=== PATIENT | male | born 1970 ===

== ENCOUNTER 2022-03-24 18:19 | Inpatient (IN) | payer MEDICARE, MEDICAID ==
[2022-03-24] MEDS ORDERED: MAGNESIUM HYDROXIDE 2,400 MG/10 ML CUP PO PRN (19:21)
[2022-03-24] MEDS ORDERED: HALOPERIDOL LACTATE 5 MG/ML 1 ML VIAL IM PRN (19:21)
[2022-03-24] MEDS ORDERED: MAG HYDROX/AL HYDROX/SIMETH 30 ML CUP PO PRN (19:21)
[2022-03-25] MEDS: NICOTINE 14MG/24HR PATCH TRANSDERM SCH ×2 (09:42→10:48)
[2022-03-25] MEDS ORDERED: NICOTINE GUM (POLACRILEX) 2 MG GUM BUCCAL PRN (11:43)
--- NOTE | 2022-03-25 12:18 | P.MDCNMH ---
History of Present Illness H&P Date: 03/25/22 Chief Complaint: Medical consultation Patient is a 51 years old male with past medical history bipolar disorder, tobacco use disorder and hypertension he was admitted to the hospital for episode of psychosis and paranoid delusions. The patient is a poor historian and he started getting fairly angry when questioned about reason for admission. He states that he's feeling well denies having any chest pain or difficulty breathing. No nausea vomiting diarrhea or constipation. He states he has no medical issues and his only problem is hypertension and he's taking lisinopril at home. Review of Systems A 14 point review systems was assessed patient was only positive for those described in HPI Past Medical History Past Medical History: No Reported History History of Any Multi-Drug Resistant Organisms: None Reported Past Surgical History: No Surgical Hx Reported Past Anesthesia/Blood Transfusion Reactions: No Reported Reaction Past Psychological History: Bipolar Smoking Status: Current every day smoker Past Alcohol Use History: None Reported Past Drug Use History: None Reported - Past Family History Mother Family Medical History: Cancer Medications and Allergies Home Medications Medication Instructions Recorded Confirmed Type Paliperidone IM [Invega Sustenna] 234 mg IM QMONTHLY #1 each 02/10/22 Rx Allergies Allergy/AdvReac Type Severity Reaction Status Date / Time No Known Allergies Allergy Verified 02/07/22 14:46 Physical Exam Vitals: Vital Signs Temp Pulse Resp BP Pulse Ox 03/25/22 07:22 97.4 F L 75 18 147/94 97 Intake and Output 03/24/22 03/25/22 03/25/22 22:59 06:59 14:59 Other: Weight 127.27 kg 127.27 kg General: [non toxic], [no distress], [appears at stated age] Derm: [warm], [dry] Head: [atraumatic], [normocephalic], [symmetric] Eyes: [EOMI], [no lid lag], [anicteric sclera] Mouth: [no lip lesion], [mucus membranes moist] Cardiovascular: [S1S2 reg], [no murmur], [positive posterior tibial pulse bilateral], Lungs: [CTA bilateral], [no rhonchi, no rales] , [no accessory muscle use] Abdominal: [soft], [ nontender to palpation], [no guarding], [no appreciable organomegaly] Ext: [no gross muscle atrophy], [no edema], [no contractures] Neuro: [ CN II-XI grossly intact], [no focal neuro deficits] Psych: [Alert], [oriented Cranial Nerve Examination - Cranial Nerves Cranial Nerve II- Optic: Intact Cranial Nerve III- Oculomotor: Intact Cranial Nerve IV- Trochlear: Intact Cranial Nerve V- Trigeminal: Intact Cranial Nerve - Abducens: Intact Cranial Nerve VII- Facial: Intact Cranial Nerve VIII- Auditory: Intact Cranial Nerve IX- Glossopharyngeal: Intact Cranial Nerve X- Vagus: Intact Cranial Nerve XI- Accessory: Intact Cranial Nerve XII- Hypoglossal: Intact Assessment and Plan Assessment: Assessment: Hypertension -Blood pressure was mildly elevated -Resume home lisinopril -Obtain hemoglobin A1c, lipid profile TSH and CMP Tobacco use disorder -Counselled on cessation Psychosis with bipolar disorder -Management for psychiatry Thank you for allowing us to participate in the care of this patient. We will follow peripherally. Do not hesitate to contact us with questions. Someone can be arranged from [facility] Hospitalist group at all hours of the day at [phone]
[2022-03-25 13:04] VITALS: BMI 39.2
[2022-03-25] MEDS: ACETAMINOPHEN TAB 325 MG TAB PO PRN (14:11)
[2022-03-25] MEDS: NICOTINE GUM (POLACRILEX) 2 MG GUM BUCCAL PRN ×3 (15:56→21:07)
[2022-03-25] MEDS: LORazepam 1 MG TAB PO PRN (17:02)
--- NOTE | 2022-03-25 17:17 | P.HP ---
Psychiatric H&P - . H&P Date: 03/25/22 History & Physical: IDENTIFYING DATA: Patient is a 51 year old male with history of bipolar disorder and psychotic symptoms, as well as history of noncompliance with treatment, who is currently on court order from [facility] since 12/06/21. HPI: Patient presented to the hospital on a court order ([facility]) dated 12/06/2021 due to noncompliance with treatment. Patient was recently hospitalized at [facility] 02/07-02/10/22, after missing his Invega Sustenna injection on 01/31/2022, and so he was given his Invega Sustenna 234 mg IM on 02/08/2022 and discharged with plan to get his next injection on 03/08/2022. He reportedly had been noncompliant with medications and treatment requiring readmission on a court order. Per nursing notes, he stated that the meds are "poison" and he doesn't feel he needs them. He has been angry, irritable, and suspicious, arguing with peers in the rocha, has been complaining that people are conspiring against him to his stuff from him, stated "they" are taking over and hiding secrets. On assessment today, he was found anxiously pacing the hallways and asking to be seen. He tells me that he is not sure why he is here because he did take his injection on March 08 and the next one is not due until mid-March. He does report he missed his last appointment with the psychiatrist. He reports a police captain precinct came to his home woke him up from sleep to take him to the hospital. He states he should not be here. He is irritable, hyperverbal, talks fast but not pressured, grandiose ("I'm pretty bright, people don't get my sense of humor"), argumentative. He makes several provocative statements such as equating the mental health system as "Hitler's kitte cats". He continues to be argumentative and evasive when answering questions. He expresses paranoid ideations that there "are people who play on other's minds". He denies recent drug or alcohol use. He reports he smoked daily but claims he quit 3-4 years ago, reports he chews the nicotine gum. Patient denies any suicidal or homicidal ideations, intent or plan. At this time patient denies any auditory or visual hallucinations. I called the number listed for his guardian twice (Nancy Ga, ) but no answer, did not leave a message since it appeared to be a work number. I contacted our EPS nurse, Sherry, who contact [facility] to verify the date of the last Invega injection. She spoke with Rush GRAHAM at [facility] who confirms patient last received his Invega Sustenna 234 mg IM on 03/08/22 at 11am and the next injection is due on 04/05/2022. PAST PSYCHIATRIC HISTORY: Patient has previous diagnoses of bipolar disorder and schizoaffective disorder. Past psychiatric medications: "You name it I've been on it...I've even had shock treatment." He has been hospitalized "numerous" times, most recently [facility] 02/07-02[facility], was discharged on Invega Sustenna 234 mg IM every four weeks with next injection due 03/08/2022. History of multiple suicide attempts in the past. He is linked with the ACT team in [facility]. PMH: Hypertension, obesity ALLERGIES: as per EMR CHEMICAL DEPENDENCY HISTORY: as per HPI FAMILY PSYCHIATRIC/SUBSTANCE USE HISTORY: "I would imagine a couple people" SOCIAL HISTORY: [place]and I do a good job at it" His sister is his guardian (Nancy Ga) MENTAL STATUS EXAM: General Appearance: Patient appears to be stated age, with average hygiene and grooming. Behavior: Patient is seated without any agitated behavior, however he is argumentative, angry and irritable. Speech: Patient's speech is loud, hyperverbal but not pressured. Mood/Affect: Patient reports his mood is "right now is positive", affect is incongruent and constricted. Suicidality/Homicidality: Patient denies having any homicidal ideation intent or plan. Denies any suicidal ideations intent or plan. Perceptions: Patient denies any visual hallucinations and denies any auditory hallucinations. Thought process: Derails easily, tangential Thought content: Makes many provocative statements. There is evidence of paranoid delusional thought content. Memory and concentration: AOX3, grossly intact for the purposes of this session. Can spell "WORLD" backwards Judgment and insight: Very poor STRENGTHS/WEAKNESSES: Strength is that patient is resilient. Weakness is that patient has poor judgment and is impulsive. INTELLECT: Average IMPRESSIONS: Bipolar 1 disorder, manic Rule out schizoaffective disorder, bipolar type Tobacco use disorder/nicotine dependence PLAN: -Patient is admitted under court under ([facility]) issued on 12/06/2021 to [facility] for stabilization of psychiatric symptoms and safety. -Medications: It has been confirmed with [facility] that his last Invega Sustenna 234 mg IM injection was given on 03/08/22 at 11am. Next injection is due 04/05/2022. He would benefit from a mood stabilizer but is not agreeable to starting one at this time. Will discuss this further with him tomorrow when he is more agreeable. He declines Depakote, claims he is allergic to it. -Ativan and Haldol PRN for agitation/aggression -Patient was informed of the risks, benefits and side effects of the medication and patient verbally consented to taking the medications. -Internal Medicine consult to perform medical evaluation and physical. -NRT - nicotine patch - on board for discharge planning. Encourage patient to participate in groups to work on coping skills. Allergies Allergy/AdvReac Type Severity Reaction Status Date / Time No Known Allergies Allergy Verified 02/07/22 14:46 Vital Signs Temp 97.4 F L 03/25/22 07:22 Pulse 75 03/25/22 07:22 Resp 18 03/25/22 07:22 BP 147/94 03/25/22 07:22 Pulse Ox 97 03/25/22 07:22 FiO2 Intake & Output 03/24/22 03/25/22 03/25/22 18:59 06:59 18:59 Weight 127.27 kg 127.27 kg 03/25/22 15:34 03/25/22 17:04
[2022-03-26] MEDS: NICOTINE GUM (POLACRILEX) 2 MG GUM BUCCAL PRN ×7 (07:27→21:42)
[2022-03-26 07:52] LABS: Basophils # (A) 0.1 k/uL (0-0.2); Basophils % (A) 1 %; Eosinophils # (A) 0.2 k/uL (0-0.7); Eosinophils % (A) 3 %; HCT 44.5 % (39.0-53.0); HGB 14.3 gm/dL (13.0-17.5); Lymphocytes # (A) 1.6 k/uL (1.0-4.8); Lymphocytes % (A) 27 %; MCH 32.1 pg (25.0-35.0); MCHC 32.2 g/dL (31.0-37.0); MCV 99.7 fL (80.0-100.0); Mean Platelet Volume 8.6; Monocytes # (A) 0.5 k/uL (0-1.0); Monocytes % (A) 8 %; Neutrophils # (A) 3.5 k/uL (1.3-7.7); Neutrophils % (A) 59 %; Platelet Count 191 k/uL (150-450); RBC 4.47 m/uL (4.30-5.90); RDW 12.2 % (11.5-15.5); WBC 5.9 k/uL (3.8-10.6)
[2022-03-26 07:59] LABS: ALT 24 U/L (4-49); AST 21 U/L (17-59); African American GFR (CKD) >90 (>60 ml/min/1.73 sqM); Albumin 4.2 g/dL (3.5-5.0); Alkaline Phosphatase 65 U/L (38-126); Anion Gap 6 mmol/L; Blood Urea Nitrogen 20 mg/dL (9-20); Calcium 8.7 mg/dL (8.4-10.2); Carbon Dioxide 31 mmol/L (22-30); Chloride 103 mmol/L (98-107); Glucose 94 mg/dL (74-99); Non-African American GFR(CKD) >90 (>60 ml/min/1.73 sqM); Potassium 4.6 mmol/L (3.5-5.1); Sodium 140 mmol/L (137-145); Total Bilirubin 0.6 mg/dL (0.2-1.3); Total Protein 6.2 g/dL (6.3-8.2)
[2022-03-26] MEDS: NICOTINE 14MG/24HR PATCH TRANSDERM SCH ×2 (09:01→09:06)
[2022-03-26] MEDS: ACETAMINOPHEN TAB 325 MG TAB PO PRN ×3 (11:13→23:12)
[2022-03-26 11:36] LABS: Chol/HDL Ratio 3.36 Ratio; LDL Cholesterol,Calculated 90.6 mg/dL (0.0-131.0); VLDL Calculation 14.66 mg/dL (5.00-40.00)
[2022-03-26] MEDS: LORazepam 1 MG TAB PO PRN ×2 (15:44→23:12)
--- NOTE | 2022-03-26 20:43 | P.PN ---
Progress Note - Text Progress Note Date: 03/26/22 Interval history: Patient was seen resting in his bed and was directable and agreeable to speak with jingle writer. His mood appears slightly improved today, he is not as irritable and argumentative as he was yesterday, however he did receive Ativan 1 mg po x 1 this afternoon for high anxiety. At this time patient denies any suicidal or homicidal ideations intent or plan. Denies any auditory or visual hallucinations. Patient denies any side effects from the medications and has b een compliant with meds. We discussed the addition of a mood stabilizer such as Depakote today but he refuses, states he prefers he stay on his current medication regime. He continues to state he does not know why he was [facility] for admission on the court order since he did receive his Invega Sustenna on 03/08/2022 but admits he did miss his psychiatry appointment. Mental status exam: General Appearance: Patient appears to be stated age, obese, with average hygiene and grooming. Behavior: Patient attempts to cooperate, without any agitated behavior. Speech: Patient's speech is loud, hyperverbal but not pressured. Mood/Affect: Patient reports his mood is "good", affect is congruent and constricted. Suicidality/Homicidality: Patient denies having any homicidal ideation intent or plan. Denies any suicidal ideations intent or plan. Perceptions: Patient denies any visual hallucinations and denies any auditory hallucinations. Thought process: Circumstantial Thought content: There is no evidence of paranoid delusional thought content today. Memory and concentration: AOX3, grossly intact for the purposes of this session. Judgment and insight: improving mildly Assessment/Plan: Continue with current diagnosis. Patient continues to meet criteria for inpatient psychiatric admission for symptom stabilization and safety. Patient will be maintained on current psychotropic medication regimen. He refuses mood stabilizer such as Depakote. Monitor for medication compliance and for any psychotropic medication side effects. Will continue to monitor ongoing response to treatment. Encouraged participation in milieu.
[2022-03-27] MEDS: NICOTINE GUM (POLACRILEX) 2 MG GUM BUCCAL PRN ×8 (07:42→22:29)
[2022-03-27] MEDS: NICOTINE 14MG/24HR PATCH TRANSDERM SCH (07:48)
--- NOTE | 2022-03-27 11:14 | P.PN ---
Progress Note - Text Progress Note Date: 03/27/22 Interval History: Patient was seen wandering the hallways and was directable and agreeable to speak with headline writer in the office. Patient claims that he is was taken from his home by the police to go to the hospital and was transferred here to [place]. He claims that he does not believe that he has bipolar disorder and is still taking the medication and injections. He was asking more about his court order. He wanted to speak more about discharge planning today. He claims that he is able to sleep better last night. Appears to be less irritable during conversation today. She is denying any depression or anxiety. He claims that his appetite is fair at this time. He is not endorsing any delusions or paranoia. At this time patient denies any suicidal or homical ideations, intent or plan. Patient denies any auditory, visual hallucinations. Patient denies any side effects from the medications and has been compliant with meds. Mental Status Exam: General Appearance: Patient appears to be stated age, with average hygiene and grooming. Behavior: Patient is seated without any agitated behavior, less irritable today Speech: Patient's speech is loud, hyperverbal but not pressured Mood/Affect: Patient reports his mood is "ok", affect is congruent and constric renny. Suicidality/Homicidality: Patient denies having any homicidal ideation intent or plan. Denies any suicidal ideations intent or plan. Perceptions: Patient denies any visual hallucinations and denies any auditory hallucinations. Thought process: tangential, no delusions or paranoia. Thought content: Makes many provocative statements, no evidence of paranoid delusional thought content. Memory and concentration: AOX3, grossly intact for the purposes of this session Judgment and insight: improving mildly IMPRESSIONS: Bipolar 1 disorder, manic rule out schizoaffective disorder, bipolar type Nicotine dependence Plan: -Patient continues to meet criteria for inpatient psychiatric admission for symptom stabilization and safety. Patient has signed medication consent and was placed in patient's chart. Patient is currently on a court order for treatment through [facility]. -Medications: It has been confirmed with [facility] that his last Invega Sustenna 234 mg IM injection was given on 03/08/22 at 11am. Next injection is due 04/05/2022. -When necessary Ativan and Haldol for agitation/aggression. -NRT - nicotine patch -SW on board for discharge planning. Encouraged the patient to participate in milieu. Likely discharge tomorrow.
[2022-03-27] MEDS: LORazepam 1 MG TAB PO PRN ×2 (16:06→23:13)
[2022-03-27] MEDS: ACETAMINOPHEN TAB 325 MG TAB PO PRN ×2 (16:06→23:13)
[2022-03-28] MEDS: NICOTINE GUM (POLACRILEX) 2 MG GUM BUCCAL PRN ×3 (06:30→13:27)
[2022-03-28 06:49] VITALS: RESP 19; TEMP 98.1
[2022-03-28 08:20] VITALS: BP 130/87; PULSE 92
[2022-03-28] MEDS: ACETAMINOPHEN TAB 325 MG TAB PO PRN (08:52)
[2022-03-28] MEDS: NICOTINE 14MG/24HR PATCH TRANSDERM SCH (09:47)
--- NOTE | 2022-03-28 10:37 | P.DS ---
Providers Date of admission: 03/25/22 06:20 Expected date of discharge: 03/28/22 Attending physician: Desmond Gonsales MD Consults: 03/24/22 19:21 Consult Physician Routine Consulting Provider: Ritesh Alvarado Consult Reason/Comments: H and P Do you want consulting provider notified?: Yes Primary care physician: Stated None - Discharge Diagnosis(es) (1) Bipolar disorder, manic phase Current Visit: Yes Status: Acute Priority: High (2) Nicotine dependence Current Visit: Yes Status: Acute Priority: Low Hospital Course: Admission HPI: Admission note was completed by Dr Rossi "Patient is a 51 year old male with history of bipolar disorder and psychotic symptoms, as well as history of noncompliance with treatment, who is currently on court order from [facility] since 12/06/21. Patient presented to the hospital on a court order ([facility]) dated 12/06/2021 due to noncompliance with treatment. Patient was recently hospitalized at [facility] 02/07-02/10/22, after missing his Invega Sustenna injection on 01/31/2022, and so he was given his Invega Sustenna 234 mg IM on 02/08/2022 and discharged with plan to get his next injection on 03/08/2022. He reportedly had been noncompliant with medications and treatment requiring readmission on a court order. Per nursing notes, he stated that the meds are "poison" and he doesn't feel he needs them. He has been angry, irritable, and suspicious, arguing with peers in the rocha, has been complaining that people are conspiring against him to his stuff from him, stated "they" are taking over and hiding secrets. On assessment today, he was found anxiously pacing the hallways and asking to be seen. He tells me that he is not sure why he is here because he did take his injection on March 08 and the next one is not due until mid-March. He does report he missed his last appointment with the psychiatrist. He reports a naval police coxswain came to his home woke him up from sleep to take him to the hospital. He states he should not be here. He is irritable, hyperverbal, talks fast but not pressured, grandiose ("I'm pretty bright, people don't get my sense of humor"), argumentative. He makes several provocative statements such as equating the mental health system as "Hitler's kitte cats". He continues to be argumentative and evasive when answering questions. He expresses paranoid ideations that there "are people who play on other's minds". He denies recent drug or alcohol use. He reports he smoked daily but claims he quit 3-4 years ago, reports he chews the nicotine gum. Patient denies any suicidal or homicidal ideations, intent or plan. At this time patient denies any auditory or visual hallucinations. I called the number listed for his guardian twice (Nancy Ga, ) but no answer, did not leave a message since it appeared to be a work number. I contacted our EPS nurse, Sherry, who contact [facility] to verify the date of the last Invega injection. She spoke with Rush GRAHAM at [facility] who confirms patient last received his Invega Sustenna 234 mg IM on 03/08/22 at 11am and the next injection is due on 04/05/2022. " Hospital course: Upon admission to the unit patient was directable and agreeable to commence treatment. [facility] got along well with other patients on the unit and followed unit protocol. Patient was compliant with the medications and denied any side effects throughout hospital course. Patient was last given his Invega sustenna FORREST 234 mg IM on 03/08 and will be due for next maintenance dose on 04/05. Patient was given haldol and ativan prns while on the unit and boserved/monitored. Patient spoke of his stressors and engaged in therapy both group and individual. Patient was also seen by medical team for history and physical exam. Throughout the course of the hospitalization patient gradually improved with regards to mood, anxiety, sleep and returned back to their baseline level of functioning. On the day of discharge patient denied any suicidal or homicidal ideations intent or plan denied any auditory or visual hallucinations. Patient endorsed wanting to live for his health and family. The patient denied any access to guns or weapons. Patient denied any paranoia and did not endorse any delusions. Patient does not have a significant history of substance abuse and was counseled on abstaining from all substances including alcohol and marijuana. Patient was also counseled on the medications and need for regular compliance and was encouraged to follow-up with their outpatient appointment for mental health and also for primary care. Prior to discharge a family meeting will be arranged by 7th grade social studies teacher to answer any questions and ensure safety upon discharge. Mental status exam: General Appearance: Patient appears to be overweight stated age is alert, pleasant, and cooperative. Patient is in no acute distress and has improved hyg iene and grooming Behavior: Patient is calmly seated without any agitated behavior. Speech: Patient's speech is fluent and nonpressured. Mood/Affect: Patient reports their mood is "good", affect is congruent and euthymic. Suicidality/Homicidality: Patient denies having any suicidal or homicidal ideation intent or plan. Perceptions: Patient denies any auditory or visual hallucinations. Though content/process: There is no evidence of any delusional thought content and thought process is linear and goal-directed. Memory and concentration: AOX3, grossly intact for the purposes of this session. Can spell "WORLD" backwards correctly. Judgment and insight: chronically poor, however has improved with guarded prognosis Impression: Bipolar disorder, current episode manic phase Nicotine dependence Plan: -Continue with discharge today as patient has improved and stabilized psychiatrically and is not currently an imminent threat to himself and/or others. -Continue medications: Patient was last given his Invega sustenna FORREST 234 mg IM on 03/08 and will be due for next maintenance dose on 04/05. Wrote a prescription for Invega Sustenna 20 and 34 mg IM to be given next on 04/05. -Patient was counseled on the need for medication compliance and appropriate follow-up at mental health and also primary care for medical issues. Patient verbalized understanding and agreed. -Social work to arrange for and conduct family meeting to ensure safety upon discharge and answer any questions/concerns. Social work also to arrange for patients follow up appointments with [facility] for psychiatric care along with follow up with primary care provider. -Patient counseled on abstaining from recreational drugs and marijuana and alcohol. Was informed/educated on the adverse effects on their physical and mental health. Patient verbally agreed and understood. -Patient was instructed to return to the hospital or seek immediate medical care if their psychiatric or medical symptoms do worsen or reoccur. Allergies Allergy/AdvReac Type Severity Reaction Status Date / Time No Known Allergies Allergy Verified 02/07/22 14:46 Laboratory Results WBC 5.9 k/uL (3.8-10.6) 03/26/22 07: RBC 4.47 m/uL (4.30-5.90) 03/26/22 07:23 Hgb 14.3 gm/dL (13.0-17.5) 03/26/22 07: Hct 44.5 % (39.0-53.0) 03/26/22 07:23 MCV 99.7 fL (80.0-100.0) 03/26/22 07:23 MCH 32.1 pg (25.0-35.0) 03/26/22 07: MCHC 32.2 g/dL (31.0-37.0) 03/26/22 07: RDW 12.2 % (11.5-15.5) 03/26/22 07:23 Plt Count 191 k/uL (150-450) 03/26/22 07: MPV 8.6 03/26/22 07:23 Neutrophils % 59 % 03/26/22 07:23 Lymphocytes % 27 % 03/26/22 07:23 Monocytes % 8 % 03/26/22 07: Eosinophils % 3 % 03/26/22 07: Basophils % 1 % 03/26/22 07:23 Neutrophils # 3.5 k/uL (1.3-7.7) 03/26/22 07:23 Lymphocytes # 1.6 k/uL (1.0-4.8) 03/26/22 07: Monocytes # 0.5 k/uL (0-1.0) 03/26/22 07:23 Eosinophils # 0.2 k/uL (0-0.7) 03/26/22 07: Basophils # 0.1 k/uL (0-0.2) 03/26/22 07:23 Sodium 140 mmol/L (137-145) 03/26/22 07:23 Potassium 4.6 mmol/L (3.5-5.1) 03/26/22 07:23 Chloride 103 mmol/L (98-107) 03/26/22 07:23 Carbon Dioxide 31 mmol/L (22-30) H 03/26/22 07:23 Anion Gap 6 mmol/L 03/26/22 07:23 BUN 20 mg/dL (9-20) 03/26/22 07:23 Creatinine 0.80 mg/dL (0.66-1.25) 03/26/22 07:23 Est GFR (CKD-EPI)AfAm >90 (>60 ml/min/1.73 sqM) 03/26/22 07:23 Est GFR (CKD-EPI)NonAf >90 (>60 ml/min/1.73 sqM) 03/26/22 07:23 Glucose 94 mg/dL (74-99) 03/26/22 07:[address] Glu mg/dL 102 03/26/22 07:23 Hemoglobin A1c 5.2 % (0.0-6.0) 03/26/22 07:23 Calcium 8.7 mg/dL (8.4-10.2) 03/26/22 07:23 Total Bilirubin 0.6 mg/dL (0.2-1.3) 03/26/22 07:23 AST 21 U/L (17-59) 03/26/22 07:23 ALT 24 U/L (4-49) 03/26/22 07:23 Alkaline Phosphatase 65 U/L (38-126) 03/26/22 07:23 Total Protein 6.2 g/dL (6.3-8.2) L 03/26/22 07:23 Albumin 4.2 g/dL (3.5-5.0) 03/26/22 07:23 Triglycerides 73.30 mg/dL (0.00-149.00) 03/26/22 07:23 Cholesterol 150.00 mg/dL (0.00-200.00) 03/26/22 07:23 LDL Cholesterol, Calc 90.6 mg/dL (0.0-131.0) 03/26/22 07:23 VLDL Cholesterol, Calc 14.66 mg/dL (5.00-40.00) 03/26/22 07:23 HDL Cholesterol 44.70 mg/dL (40.00-60.00) 03/26/22 07:23 Cholesterol/HDL Ratio 3.36 Ratio 03/26/22 07: TSH 1.250 mIU/L (0.465-4.680) 03/26/22 07:23 Vital Signs Temp 98.1 F 03/28/22 05:20 Pulse 92 03/28/22 08:20 Resp 19 03/28/22 05:20 BP 130/87 03/28/22 08:20 Pulse Ox 94 L 03/28/22 05:20 FiO2 Patient Condition at Discharge: Stable Plan - Discharge Summary Discharge Rx Participant: No New Discharge Prescriptions: New Nicotine 14Mg/24Hr Patch [Habitrol] 1 patch TRANSDERM DAILY 14 Days patch lisinopriL [Zestril] 2.5 mg PO DAILY 30 Days tab Continue Paliperidone IM [Invega Sustenna] 234 mg IM QMONTHLY #1 each Discharge Medication List Nicotine 14Mg/24Hr Patch [Habitrol] 1 patch TRANSDERM DAILY 14 Days patch 03/28/22 [Rx] Paliperidone IM [Invega Sustenna] 234 mg IM QMONTHLY #1 each 03/28/22 [Rx] lisinopriL [Zestril] 2.5 mg PO DAILY 30 Days tab 03/28/22 [Rx] Follow up Appointment(s)/Referral(s): VIANEY Austin [Other] - 03/30/22 10:00 am Activity/Diet/Wound Care/Special Instructions: Avoid the use of street drugs and alcohol. Take all prescriptions as prescribed. When you are in need of refills on your medications, please contact your medical provider and/or outpatient psychiatrist to have this done. Please go to scheduled outpatient appointment for aftercare treatment. If symptoms return or become worse, call the crisis line at and/or go to the nearest emergency room for evaluation. Discharge Disposition: HOME SELF-CARE
== END 2022-03-28 15:05 | disposition home or self-care (01) | DRG 885 ==
LOC: 3MHU 03-25 06:20
PROVIDERS: ADMIT Psychiatry & Neurology Psychiatry; ATTEND Psychiatry & Neurology Psychiatry
DX: F31.2 Bipolar disorder, current episode manic severe with psychotic features (principal); Z71.6 Tobacco abuse counseling; F17.210 Nicotine dependence, cigarettes, uncomplicated; Z71.89 Other specified counseling; F41.9 Anxiety disorder, unspecified; F60.0 Paranoid personality disorder; I10 Essential (primary) hypertension; E66.9 Obesity, unspecified; Z68.38 Body mass index [BMI] 38.0-38.9, adult; Z91.199 Patient's noncompliance with other medical treatment and regimen due to unspecified reason; Z91.51 Personal history of suicidal behavior; T43.596A Underdosing of other antipsychotics and neuroleptics, initial encounter; Z91.128 Patient's intentional underdosing of medication regimen for other reason; Z28.21 Immunization not carried out because of patient refusal; Z79.899 Other long term (current) drug therapy
CPT/HCPCS: 80053; 80061; 83036; 84443; 85025